=== PATIENT | female | born 1975 | race Caucasian/White ===

== ENCOUNTER 2019-04-07 09:30 | Emergency (ER) | payer MEDICAID ==
[~2019-04-07] VITALS: Ht 157.5 cm; Wt 86.4 kg
[2019-04-07 09:37] VITALS: BP 121/68
[2019-04-07 10:03] LABS: BASOPHILS # (AUTO) 0.12 x10^3/uL (0-0.1); BASOPHILS % (AUTO) 1 % (0-1); EOSINOPHILS # (AUTO) 0.66 x10^3/uL (0-0.4); EOSINOPHILS % (AUTO) 7 % (1-7); LYMPHOCYTES # (AUTO) 2.04 x10^3/uL (1-3.4); LYMPHOCYTES % (AUTO) 22 % (22-44); MD NO; MEAN CORPUSCULAR HGB CONC 33.3 g/dL (32.4-35.8); MEAN CORPUSCULAR VOLUME 93.2 fL (80-100); MONOCYTES # (AUTO) 0.66 x10^3/uL (0.2-0.8); MONOCYTES % (AUTO) 7 % (2-9); NEUTROPHILS # (AUTO) 5.65 x10^3/uL (1.8-6.8); NEUTROPHILS % (AUTO) 62 % (42-75); PLATELET COUNT 353 x10^3/uL (130-400); RED BLOOD COUNT 4.48 x10^6/uL (3.82-5.3); RED CELL DISTRIBUTION WIDTH 14.9 % (9.6-15.2)
--- NOTE | 2019-04-07 10:05 | NUR ---
pt to xr. stable. atraumatic mid back pain radiates down both legs w/ numb/tingling x1 week. as
[2019-04-07 10:12] LABS: ALBUMIN 3.3 g/dL (3.4-5.0); ANION GAP 6 mmol/L (5-15); CALCIUM 8.1 mg/dL (8.5-10.1); CHLORIDE 109 mmol/L (98-107)
[2019-04-07 10:17] LABS: ALANINE AMINOTRANSFERASE 41 U/L (12-78); ALKALINE PHOSPHATASE 52 U/L (45-117); BILIRUBIN,TOTAL 0.3 mg/dL (0.2-1.0); CREATININE 0.91 mg/dL (0.55-1.02); TOTAL PROTEIN 7.4 g/dL (6.4-8.2); TROPONIN I < 0.015 ng/mL (0.000-0.045)
[2019-04-07] MEDS ORDERED: KETOROLAC 30 MG/1 ML ONE (10:55)
[2019-04-07] MEDS ORDERED: ONDANSETRON ODT 4 MG ONE (10:58)
[2019-04-07] MEDS ORDERED: ONDANSETRON ODT 4 MG PO ONE (11:00)
[2019-04-07] MEDS ORDERED: KETOROLAC 30 MG/1 ML IM ONE (11:00)
== END 2019-04-07 11:05 | disposition home or self-care (01) ==
LOC: ED 10:30
DX: M54.6 Pain in thoracic spine (principal); F17.210 Nicotine dependence, cigarettes, uncomplicated; G89.29 Other chronic pain
CPT/HCPCS: 36415; 72072; 80053; 84484; 85025; 93005; 96372; 99284; J1885; Q0162

== ENCOUNTER → 2020-08-26 | Outpatient (CLI) | payer MEDICARE, MEDICAID | END | disposition home or self-care (01) | LOC: RAD 15:30 | PROVIDERS: ATTEND Registered Nurse Registered Nurse First Assistant | DX: G93.5 Compression of brain (principal); M50.222 Other cervical disc displacement at C5-C6 level | CPT/HCPCS: 70551; 72141 ==